=== PATIENT | male | born 1955 | race Caucasian/White ===

== ENCOUNTER 2016-07-09 09:24 | Inpatient (IN) | payer MEDICAID ==
[~2016-07-09] VITALS: Ht 193 cm; Wt 57.5 kg
[2016-07-09 11:02] LABS: Basophils # (auto) 0 uL; Basophils % (auto) 0.3 % (0.0-2.0); DEFINITIVE VIEW TRANSMISSION; Eosinophils # (auto) 0 uL; Eosinophils % (auto) 0.8 % (0.0-7.0); Hematocrit 34.4 % (41.0-53.0); Hemoglobin 11.3 g/dL (13.5-17.5); Lymphocytes # (auto) 1.3 uL; Lymphocytes % (auto) 22.7 % (10.0-50.0); Mean Corpuscular Hemoglobin 29.9 pg (28.0-32.0); Mean Corpuscular Hgb Conc. 32.7 g/dL (32.0-36.0); Mean Corpuscular Volume 91.3 fL (80.0-100.0); Mean Platelet Volume 7.7 fL (7.4-10.4); Monocytes # (auto) 0.2 uL; Monocytes % (auto) 4.2 % (0.0-12.0); Neutrophils # (auto) 4.2 uL; Platelet Count (auto) 320 10^3/uL (140-450); White Blood Cell 5.9 10^3/uL (4.4-10.8)
[2016-07-09 11:04] LABS: Red Cell Distribution Width 20.5 % (11.6-16.0)
[2016-07-09] MEDS ORDERED: SODIUM CHLORIDE 0.9% 1,000 ML IV ONE (11:09)
[2016-07-09 11:18] LABS: Platelet Estimate Adequate
[2016-07-09 11:19] LABS: Anisocytosis Slight
[2016-07-09 11:21] LABS: INR 1.05 (0.9-1.15); Partial Thromboplastin Time 27.5 sec (22.64-33.71); Prothrombin Time 10.8 sec (9.37-12.3)
[2016-07-09 11:25] LABS: Albumin 2.8 g/dL (3.4-5.0); BUN/Creatinine Ratio 15.2; Bilirubin, Total 0.6 mg/dL (0.2-1.0); Calcium 9.2 mg/dL (8.5-10.1); Total Protein 9.3 g/dL (6.4-8.2)
[2016-07-09 13:08] LABS: Urine Bilirubin Negative (Negative); Urine Blood Negative /uL (Negative); Urine Color Yellow (Yellow); Urine Glucose Normal (Normal); Urine Ketone Negative (Negative); Urine Mucus FEW (None Seen); Urine Nitrite Negative (Negative); Urine RBC <1 /hpf (0 - 3); Urine Urobilinogen Normal (Negative); Urine pH 6.5 (5.0-8.0)
[2016-07-09] MEDS ORDERED: PANTOPRAZOLE SODIUM 40 MG/10 ML VIAL IV ONE (15:00)
[2016-07-09] MEDS ORDERED: cefTRIAXone 1GM/50ML D5W 50 ML IV ONE (15:00)
[2016-07-09] MEDS ORDERED: LORazepam 0.5 MG TAB PO PRN (15:00)
[2016-07-09] MEDS ORDERED: TEMAZEPAM 15 MG CAP PO PRN (15:00)
[2016-07-09] MEDS ORDERED: NITROGLYCERIN 0.4 MG SL TAB SL PRN (15:00)
[2016-07-09] MEDS ORDERED: MORPHINE SULF INJ 2 MG/ML SYRINGE 1ML IV PRN (15:00)
[2016-07-09] MEDS ORDERED: PROMETHAZINE HCL 25 MG/ML 1ML IV PRN (15:00)
[2016-07-09 15:47] LABS: Amylase 30 U/L (25-115)
[2016-07-09 15:53] VITALS: BP 124/76
[2016-07-09] MEDS ORDERED: TRAM50TA2 PO (16:38)
[2016-07-09] MEDS ORDERED: IBUP200C14 PO (16:38)
[2016-07-09] MEDS ORDERED: FUROSEMIDE 40 MG TAB PO ONE (17:30)
[2016-07-09] MEDS ORDERED: metroNIDAZOLE 500MG/100ML 100 ML IV SCH (18:00)
[2016-07-09] MEDS: MORPHINE SULF INJ 2 MG/ML SYRINGE 1ML IV PRN (18:18)
[2016-07-09 21:37] VITALS: BP 113/70
[2016-07-10 05:00] VITALS: BP 112/70
[2016-07-10 06:45] LABS: Basophils # (auto) 0 uL; Basophils % (auto) 0.4 % (0.0-2.0); DEFINITIVE VIEW TRANSMISSION; Eosinophils # (auto) 0.1 uL; Eosinophils % (auto) 1.3 % (0.0-7.0); Hematocrit 30.7 % (41.0-53.0); Hemoglobin 10.4 g/dL (13.5-17.5); Lymphocytes # (auto) 1.4 uL; Lymphocytes % (auto) 28.5 % (10.0-50.0); Mean Corpuscular Hemoglobin 31.2 pg (28.0-32.0); Mean Corpuscular Hgb Conc. 33.9 g/dL (32.0-36.0); Mean Platelet Volume 7.8 fL (7.4-10.4); Monocytes # (auto) 0.3 uL; Monocytes % (auto) 5.9 % (0.0-12.0); Neutrophils % (auto) 63.9 % (37.0-80.0); Platelet Count (auto) 271 10^3/uL (140-450); SUSPECT VIEW TRANSMISSION; White Blood Cell 4.8 10^3/uL (4.4-10.8)
[2016-07-10 06:54] LABS: Red Cell Distribution Width 20.5 % (11.6-16.0)
[2016-07-10 06:55] LABS: Anisocytosis Slight; Platelet Estimate Adequate
[2016-07-10 07:18] LABS: Albumin 2.4 g/dL (3.4-5.0); BUN/Creatinine Ratio 15.6; Bilirubin, Total 0.5 mg/dL (0.2-1.0); Calcium 8.5 mg/dL (8.5-10.1); Total Protein 8.2 g/dL (6.4-8.2)
[2016-07-10 09:00] VITALS: BP 93/71
[2016-07-10] MEDS ORDERED: cefTRIAXone 1GM/50ML D5W 50 ML IV SCH (09:00)
[2016-07-10] MEDS: FUROSEMIDE 40 MG TAB PO SCH (09:32)
[2016-07-10] MEDS: PANTOPRAZOLE 40 MG TAB PO SCH (09:32)
[2016-07-10] MEDS: SPIRONOLACTONE 25 MG TAB PO SCH (09:32)
[2016-07-10] MEDS: MORPHINE SULF INJ 2 MG/ML SYRINGE 1ML IV PRN ×2 (09:33→13:58)
[2016-07-10] MEDS ORDERED: IOHEXOL 300 MG/ML 100ML BOTTLE IJ ONE (09:59)
[2016-07-10] MEDS ORDERED: LIDOCAINE 2%HCL (LOCAL ANESTH.) INJ 20ML MDV ONE (09:59)
[2016-07-10] MEDS ORDERED: ENOXAPARIN SOD 40 MG/0.4 ML SYRINGE SC SCH (10:00)
[2016-07-10] MEDS ORDERED: ALBUMIN 25% 200 ML IV ONE (10:25)
[2016-07-10] MEDS ORDERED: diphenhdrAMINE HCL 50 MG/1 ML VL ONE (11:26)
[2016-07-10 12:47] VITALS: BP 102/53
[2016-07-10 15:51] LABS: Body Fluid Polymorphonuclear 9 %
[2016-07-10] MEDS: MULTIPLE VITAMINS W/ MINERALS TAB PO SCH (16:28)
[2016-07-10] MEDS: ASCORBIC ACID 500 MG TAB PO SCH ×2 (16:28→22:00)
[2016-07-10 16:37] VITALS: BP 100/54
[2016-07-10 21:29] VITALS: BP 118/64
[2016-07-10] MEDS ORDERED: PRO-STAT 64 30ML GT SCH (22:00)
[2016-07-10] MEDS: PRO-STAT 64 30ML PO SCH (22:00)
[2016-07-11 04:58] VITALS: BP 114/72
[2016-07-11 08:00] VITALS: BP_SYST 114; BP_SYST 99; BP_DIAS 72; BP_DIAS 73
[2016-07-11] MEDS: SPIRONOLACTONE 25 MG TAB PO SCH (10:27)
[2016-07-11] MEDS: ASCORBIC ACID 500 MG TAB PO SCH (10:27)
[2016-07-11] MEDS: FUROSEMIDE 40 MG TAB PO SCH (10:27)
[2016-07-11] MEDS: MULTIPLE VITAMINS W/ MINERALS TAB PO SCH (10:28)
[2016-07-11] MEDS: PANTOPRAZOLE 40 MG TAB PO SCH (10:28)
[2016-07-11] MEDS: PRO-STAT 64 30ML PO SCH (10:28)
[2016-07-11] MEDS ORDERED: SPIR25TA88 PO (12:10)
[2016-07-11] MEDS ORDERED: FURO40TA4 PO (12:10)
[2016-07-11 12:30] VITALS: BP 95/63
[2016-07-11 13:22] VITALS: BP 99/73
[2016-07-11] MEDS ORDERED: PRO-STAT 64 30ML PO SCH (18:00)
[2016-07-11] MEDS ORDERED: NutriHep 250 mL Bottle PO SCH (18:00)
[2016-07-11 19:06] LABS: Albumin, Body Fluid 1.5 g/dL (.)
== END 2016-07-11 15:39 | disposition home or self-care (01) | DRG 264 ==
LOC: ER 09:35 → TELE 09:36 → TELE-EAST 20:51
PROVIDERS: ADMIT Internal Medicine; ATTEND Internal Medicine
PROC: 0W9G3ZX Drainage of Peritoneal Cavity, Percutaneous Approach, Diagnostic (ICD-10-PCS; principal; 2016-07-10)
DX: K70.31 Alcoholic cirrhosis of liver with ascites (principal); K76.6 Portal hypertension; E44.0 Moderate protein-calorie malnutrition; R16.0 Hepatomegaly, not elsewhere classified; I70.0 Atherosclerosis of aorta; L98.9 Disorder of the skin and subcutaneous tissue, unspecified; K76.9 Liver disease, unspecified; F12.90 Cannabis use, unspecified, uncomplicated; H54.41 Blindness, right eye, normal vision left eye; I10 Essential (primary) hypertension; F17.210 Nicotine dependence, cigarettes, uncomplicated; Z82.49 Family history of ischemic heart disease and other diseases of the circulatory system; Z83.3 Family history of diabetes mellitus; Z90.49 Acquired absence of other specified parts of digestive tract; Z88.8 Allergy status to other drugs, medicaments and biological substances; Z71.6 Tobacco abuse counseling; Z87.828 Personal history of other (healed) physical injury and trauma; Z68.1 Body mass index [BMI] 19.9 or less, adult
CPT/HCPCS: 36415; 71020; 74176; 74177; 76700; 76942; 80053; 81001; 82105; 82150; 82378; 83690; 83735; 85025; 85610; 85730; 87205; 89051; 93005; 96361; 96374; 96375; C9113; J0696